=== PATIENT | female | born 1950 | race Caucasian/White ===

== ENCOUNTER 2017-09-28 15:20 | Inpatient (IN) | payer MEDICARE ==
[2017-09-28] MEDS ORDERED: ISOVUE-370 76%-LOCM 1 ML ONE (16:39)
[2017-09-28 17:36] LABS: #Basophils 0.1 thou/uL (0.0-0.2); #Lymphocytes 2.4 thou/uL (1.20-3.40); #Neutrophils 7.5 thou/uL (1.40-6.50); %Basophils 1.1 % (0.0-1.0); %Eosinophils 0.4 % (0.0-10.0); %Lymphocytes 21.6 % (21.0-51.0); %Monocytes 8.9 % (0.0-10.0); %Neutrophils 68.1 % (42.0-75.0); Hemoglobin 13.9 g/dL (12.0-16.0); Mean Corpuscular HGB CONC 33.2 g/dL (32.0-36.0); Mean Corpuscular Volume 90.5 fl (81.0-99.0); Mean Platelet Volume 7.3 fL (7.4-10.4); Platelet Count 274 thou/uL (130-400); RBC Distribution Width 12.4 % (11.5-14.5); Red Blood Cell (RBC) Count 4.64 mill/uL (4.20-5.40); White Blood Cell (WBC) Count 10.9 thou/uL (4.8-10.8)
[2017-09-28 17:40] LABS: Prothrombin Time 13.3 SEC (12.0-14.7)
[2017-09-28 17:59] LABS: ALT (SGPT) 18 U/L (8-55); AST (SGOT) 21 U/L (5-34); Albumin 4.8 g/dL (3.4-4.8); Alkaline Phosphatase 83 U/L (40-150); Anion Gap 17 mmol/L (10-20); BUN (Urea Nitrogen) 10 mg/dL (9.8-20.1); Bilirubin, Total 1.4 mg/dL (0.2-1.2); Calc. Creatinine Clearance 0 mL/min (70-130); Calcium 10.7 mg/dL (7.8-10.44); Carbon Dioxide 27 mmol/L (23-31); Chloride 96 mmol/L (98-107); Estimated GFR-MDRD 80; Globulin 3.4 g/dL (2.4-3.5); Glucose 102 mg/dL (80-115); Potassium 3.3 mmol/L (3.5-5.1); Protein, Total 8.2 g/dL (6.0-8.3); Sodium 137 mmol/L (136-145)
[2017-09-28 18:03] LABS: Troponin I Less than 0.010 ng/mL (< 0.028)
--- NOTE | 2017-09-28 18:39 | CT ---
CT ANGIO OF HEAD PERFORMED WITH AND WITHOUT INTRAVENOUS CONTRAST ENHANCEMENT WITH 3D RECONSTRUCTIONS AND CT ANGIO OF NECK PERFORMED WITH INTRAVENOUS CONTRAST ENHANCEMENT WITH 3D RECONSTRUCTIONS: 09/28/17 HISTORY: Patient with slurred speech. COMPARISON: 09/27/17 CT of the brain. Noncontrast CT shows a more definitive area of acute to subacute infarct in right middle cerebral ar roxi territory with decreased attenuation of the parasylvian location without evidence of hemorrhage. The parotid and submandibular gland regions are unremarkable. Parapharyngeal spaces are clear. No sig nificant adenopathy. Vocal cord region appears unremarkable. There is a right lobe thyroid nodule pre sent which would be better investigated with ultrasound on a nonemergent basis. CT ANGIO OF HEAD: There is patent cavernous portions of both internal carotid arteries. The A1, M1, and A2 and M2 segme nts of both right and left anterior middle cerebral arteries are patent. There is some mild decrease in the number of smaller peripheral parasylvian vessels on the right. I do not see any definite signs of any thrombus or evidence for any type of dissection. CT ANGIO OF NECK: The origin of the left vertebral is very tortuous with some very mild narrowing. Vertebral arteries a re codominant. There is some atherosclerotic change within both vertebral arteries, but they form a normal appearing basilar artery and posterior cerebral arteries appear unremarkable. There is a separate origin of the left common carotid artery from the aorta. There is no evidence of any significant common internal or external carotid stenosis. The right side shows similar findings without significant stenosis. IMPRESSION: 1. Evidence of an acute right middle cerebral artery infarct. There is slight decrease in number of the smaller parasylvian arteries on the right side associated with this, but I do not see any sig ns of any intraluminal thrombus or dissection. 2. No evidence of any internal carotid artery stenosis or evidence of any significant plaque for mation. POS: [facility]
[2017-09-28 19:57] LABS: Amphetamine Not Detected (NotDetected); Barbiturates Screen Not Detected (NotDetected); Benzodiazepine Screen Detected (NotDetected); Cocaine Metabolite Screen Not Detected (NotDetected); Medtox Control Line Valid? VALID (VALID); Medtox Reader # READER 1; Methadone Not Detected (NotDetected); Methamphetamine Not Detected (NotDetected); Opiate Screen Not Detected (NotDetected); Oxycodone Screen Not Detected (NotDetected); Phencyclidine (PCP) Not Detected (NotDetected); THC/Cannabinoid Screen Not Detected (NotDetected); Tricyclic Screen Not Detected (NotDetected)
[2017-09-28] MEDS ORDERED: Bisacodyl 5 MG TAB PO PRN (22:09)
[2017-09-28] MEDS ORDERED: Bisacodyl 10 MG SUPP PR PRN (22:09)
[2017-09-28] MEDS ORDERED: Acetaminophen 325 MG TAB PO PRN (22:09)
[2017-09-28] MEDS ORDERED: Loratadine 10 MG TAB PO PRN (22:09)
[2017-09-28] MEDS ORDERED: Mag-Al 1200 mg/1200 mg/30 ML UDCUP PO PRN (22:09)
[2017-09-28] MEDS ORDERED: Senokot 8.6 MG TAB PO PRN (22:09)
[2017-09-28] MEDS ORDERED: Ondansetron HCl/PF 4 MG/2 ML Vial IVP PRN (22:09)
[2017-09-28] MEDS ORDERED: Nitroglycerin 0.4 MG TAB (25 Tab Bottle) SL PRN (22:09)
[2017-09-28] MEDS ORDERED: Diabetic Tussin 200 MG/10 ML UDCUP PO PRN (22:09)
[2017-09-28] MEDS ORDERED: hydrALAZINE 20 MG/ML VIAL SLOW IVP PRN (22:09)
[2017-09-28] MEDS ORDERED: traMADol HCl 50 MG TAB PO PRN (22:09)
[2017-09-28] MEDS ORDERED: Benzonatate 100 MG CAP PO PRN (22:09)
[2017-09-28] MEDS ORDERED: Acetaminophen 650 MG Suppository PR PRN (22:09)
[2017-09-28] MEDS ORDERED: Lorazepam 2 MG/ML VIAL SLOW IVP PRN (22:09)
[2017-09-28] MEDS ORDERED: Calcium Carbonate 500 MG ChewTAB PO PRN (22:09)
[2017-09-28] MEDS ORDERED: Sodium Chloride 0.9% 1,000 ML IV SCH (22:15)
[2017-09-28] MEDS ORDERED: Potassium Chloride 40 MEQ in Sodium Chloride 0.9% 500 ML IVPB SCH (23:00)
[2017-09-29 01:06] VITALS: BMI 29.5
--- NOTE | 2017-09-29 03:51 | HP ---
PRIMARY CARE PHYSICIAN: Miko Winter PA-C in [place] CHIEF COMPLAINT: Slurred speech, facial droop, and facial flushing, and difficulty swallowing. HISTORY OF PRESENT ILLNESS: Ms. Ambrose is a very pleasant 67-year-old female with past medical hist ory of hypertension and gastroesophageal reflux disease who was brought into the emergency room by he r with the above-mentioned complaints. History is mainly obtained by the patient herself and supplemented by the electronic medical records from the emergency room. According to Ms. Ambrose her noticed that her speech was slurred and her face was flushed. I t was noticed by her that she was drooling and is having difficulty swallowing. She was init ially taken to [place] emergency room yesterday and was discharged home with written precautions. A ccording to the , her speech became more slurred and he returned her to the emergency room. Upon presentation to the emergency room, her blood pressure was 131/85 and she was hemodynamically st able. Her neurological examination was consistent with some left-sided facial weakness, left arm wea kness, left-sided facial droop and right gaze deviation. She was given [address] scan was obtained. CT of the brain showed some nonspecific equivocal findings in the right sylvian fissure. For this reason, she underwent a CT angiogram of the head and neck. This confirmed the findings of acute right middle cerebral artery infarction. She was not found to have any significant stenosis of the internal carotid arteries in the CT angio of the neck. Now, she is being admitted to the stroke floor for acute CVA. PAST MEDICAL HISTORY: 1. Hypertension. 2. Gastroesophageal reflux disease. 3. Chronic sinus infections. 4. Sciatica. PAST SURGICAL HISTORY: 1. Hysterectomy. 2. Bilateral bunion surgery. 3. Orthopedic surgery. SOCIAL HISTORY: She is and lives with her at home. No drug, tobacco, or alcohol abu se. ALLERGIES: Listed as LISINOPRIL, LATEX. FAMILY HISTORY: Significant for stroke in her mother, otherwise she denies any premature coronary ar roxi disease, cancer, diabetes, or hypertension. PSYCHIATRIC HISTORY: No anxiety, no depression. HOME MEDICATIONS: According to the ER room record, she takes the following: Tylenol with codeine #3 every 6 hours as needed, calcium plus vitamin D, Flexeril 10 mg b.i.d., fluticasone 50 mcg p.r.n., g abapentin 300 mg p.r.n., lorazepam 0.5 mg at bedtime, magnesium sulfate, Phenergan, rabeprazole 20 mg daily, spironolactone 50 mg daily. REVIEW OF SYSTEMS: At this time, the patient feels that her speech and her swelling has somewhat imp roved otherwise negative. The following complete review of systems was negative, unless otherwise me ntioned in the HPI or below: Constitutional: Weight loss or gain, ability to conduct usual activities. Skin: Rash, itching. Eyes: Double vision, pain. ENT/Mouth: Nose bleeding, neck stiffness, pain, tenderness. Cardiovascular: Palpitations, dyspnea on exertion, orthopnea. Respiratory: Shortness of breath, wheezing, cough, hemoptysis, fever or night sweats. Gastrointestinal: Poor appetite, abdominal pain, heartburn, nausea, vomiting, constipation, or diarr hea. Genitourinary: Urgency, frequency, dysuria, nocturia. Musculoskeletal: Pain, swelling. Neurologic/Psychiatric: Anxiety, depression. Allergy/Immunologic: Skin rash, bleeding tendency. PHYSICAL EXAMINATION: VITAL SIGNS: Blood pressure 131/84, pulse of 85, respirations 20, temperature 98.3, saturating 96% o n room air, on arrival. GENERAL: She appears in no acute distress. She is somewhat slow in her speech, but is awake, alert, oriented x3. HEENT: Mucous membrane is moist and pink. No oropharyngeal exudate or erythema. Head is normocepha lic, atraumatic. Pupils are equal, reactive to light and accommodation. Extraocular movements are i ntact. NECK: Supple without any lymphadenopathy, JVD, or bruit. CHEST: Clear to auscultation without any wheezing, rales, or rhonchi. Rate and rhythm is regular wi thout any murmur, rubs, or gallops. NEUROLOGIC: She has some slurred speech and mild left-sided facial droop and mild left arm and left leg weakness. Cranial nerve otherwise II-XII grossly intact. Sensation is intact. [id number]-uz-dssg t esting is within normal limits. Gait is not checked. PSYCHIATRIC: Normal affect. SKIN: Free of any rashes or bruises. Feels warm and dry to touch. LABORATORY DATA: A 12-lead EKG by my review shows normal sinus rhythm at 78 beats per minute with so me left ventricular hypertrophy. CT scan of the brain as per the radiologist as per the HPI. CBC shows WBCs of 10.9, otherwise unremarkable. Serum chemistries show potassium of 3.3, otherwise u nremarkable. Total bilirubin mildly elevated at 1.4. Cardiac enzymes normal. Urine drug screen pos itive for benzodiazepine. IMPRESSION AND PLAN: 1. Right middle cerebral artery infarction. The patient is being admitted to the stroke floor. We will consult stroke team and neurologist in the morning. Continue with full dose aspirin and atorvas tatin as well. Check a lipid panel and consult OT, PT and speech therapy as well. The patient will be kept n.p.o. until the speech therapist evaluation. For this reason, we will start her on gentle I V fluid hydration. Also, order transthoracic echocardiogram, and MRI of the brain along with MELISSA scr eening, home design assistant, ESR, and rheumatoid factor, encephalitis, RPR check. 2. Hypokalemia. We will replace and recheck in the morning. 3. Gastroesophageal reflux disease. She will be treated with Pepcid IV b.i.d. at this time also for the gastric prophylaxis. 4. History of hypertension. Patient is currently well controlled and most recent blood pressure is 136/64. We will hold antihypertensives to allow for permissive hypertension at this point. P.r.n. a ntihypertensives have been ordered. 5. Code status: FULL CODE. 6. Deep venous thrombosis and gastrointestinal prophylaxis. DISPOSITION: Ms. Ambrose is being admitted to the stroke floor for acute right MCA infarction. Krystal mated length of stay is at least 2 to 3 midnight. Further management will depend upon her clinical c ourse.
[2017-09-29 04:58] LABS: Bilirubin Negative (Negative); Blood, Urine Negative (Negative); Clarity CLEAR (Clear); Glucose, Urine (Dipstick) Negative (Negative); Leukocyte Negative (Negative); Nitrite Negative (Negative); Protein, Urine (Dipstick) Negative (Neg-Trace); Urobilinogen 0.2 mg/dL (0.2-1.0)
[2017-09-29 05:03] LABS: Specific Gravity, Urine 1.044 (1.002-1.036)
[2017-09-29 05:19] LABS: EliA RAS New Method **** NEW METHOD ****
[2017-09-29 05:24] LABS: #Basophils 0.1 thou/uL (0.0-0.2); #Eosinphils 0.1 thou/uL (0.0-0.7); #Lymphocytes 2.4 thou/uL (1.20-3.40); #Monocytes 0.8 thou/uL (0.11-0.59); #Neutrophils 4.8 thou/uL (1.40-6.50); %Basophils 1.5 % (0.0-1.0); %Eosinophils 0.9 % (0.0-10.0); %Lymphocytes 29.5 % (21.0-51.0); %Monocytes 9.7 % (0.0-10.0); %Neutrophils 58.5 % (42.0-75.0); Hemoglobin 12.8 g/dL (12.0-16.0); Mean Corpuscular HGB CONC 33.1 g/dL (32.0-36.0); Mean Corpuscular Hemoglobin 30.3 pg (27.0-31.0); Mean Corpuscular Volume 91.4 fl (81.0-99.0); Mean Platelet Volume 7.5 fL (7.4-10.4); Platelet Count 241 thou/uL (130-400); RBC Distribution Width 12.4 % (11.5-14.5); Red Blood Cell (RBC) Count 4.22 mill/uL (4.20-5.40); White Blood Cell (WBC) Count 8.2 thou/uL (4.8-10.8)
[2017-09-29 05:55] LABS: Anion Gap 12 mmol/L (10-20); BUN (Urea Nitrogen) 12 mg/dL (9.8-20.1); Calc. Creatinine Clearance 107 mL/min (70-130); Calcium 9.2 mg/dL (7.8-10.44); Carbon Dioxide 25 mmol/L (23-31); Cardiac Risk 3.3 (Less than 4.5); Chloride 105 mmol/L (98-107); Cholesterol 180 mg/dl (< 200 Desired); Estimated GFR-MDRD 85; Glucose 87 mg/dL (80-115); HDL Cholesterol 54 mg/dL (>60 Neg Risk); LDL Cholesterol, Calculated 115 mg/dL; Potassium 3.4 mmol/L (3.5-5.1); Sodium 139 mmol/L (136-145); Triglycerides 56 mg/dL (Less than 150)
[2017-09-29 06:00] LABS: Syphilis Antibody Nonreactive (Nonreactive); Syphilis Antibody Index 0.04 S/CO (<1.00 Non-Reactive)
[2017-09-29] MEDS ORDERED: Famotidine 20 MG TAB PO SCH (09:00)
[2017-09-29] MEDS ORDERED: Enoxaparin Sodium 30 MG/0.3 ML SYRINGE SC SCH (09:00)
[2017-09-29] MEDS ORDERED: Aspirin 300 MG Suppository PR SCH (09:00)
[2017-09-29] MEDS ORDERED: Famotidine/PF 20 mg/2ml Vial SLOW IVP SCH (09:00)
--- NOTE | 2017-09-29 10:26 | MRI ---
MRI BRAIN WITHOUT IV CONTRAST: Date: 09/29/17 HISTORY: Right middle cerebral artery infarction noted on prior CT angiogram head. FINDINGS: There is an area of restricted diffusion in the right anterior frontal lobe, as well as involving a p ortion of the most anterior superior aspect of the right temporal lobe consistent with an acute infar ction in the distribution of the right middle cerebral artery. This corresponds to findings on recent CT head on 09/28/17. No additional areas of acute infarction are visualized. There is mild edema adj acent to the area of infarction. There is no midline shift present. Ventricular system is normal in s ize, shape, and position. Grossly appropriate flow-voids are demonstrated at the base of the brain. A few scattered punctate foci of increased FLAIR and T2-weighted signal intensity in the periventricu lar and subcortical white matter which are nonspecific but likely reflective of mild chronic small ve ssel ischemic changes. The orbits, paranasal sinuses, and skull base have a normal MRI appearance. IMPRESSION: 1. Acute infarction in the right middle cerebral artery distribution. Findings were also seen on rec ent CT scan of the head on 09/28/17. 2. Mild chronic small vessel ischemic changes. POS: [facility]
--- NOTE | 2017-09-29 15:08 | CON ---
DATE OF CONSULTATION: 09/29/2017 CONSULTING PHYSICIAN: Hospitalist Service. IMPRESSION: 1. Right middle cerebral artery stroke. 2. Hypertension. 3. Chronic pain disorder. PLAN: 1. Aspirin 325 mg per day. 2. Statin to address her hyperlipidemia. 3. Echocardiogram. 4. Office followup. HISTORY OF PRESENT ILLNESS: Ms. Ambrose is a 67-year-old white female with reported history of mild hypertension and chronic pain issues including fibromyalgia and cervical disk disease. She developed acute dysarthria and was taken to the emergency room on . Apparently, her symptoms improved enough that the ER doctor did not feel there was any significant problems. She had a negative CT sc an at that point. She went home and appeared to be very drowsy throughout the afternoon. By the , her speech was worse and she was taken to the emergency room here. Her CT scan showed some bey btle acute ischemic changes in the right middle cerebral artery territory. CTA of the carotids were unremarkable. She has now had an MRI of the brain which showed some area of acute infarction involvi ng the right middle cerebral artery territory. Fortunately, her speech has improved and she never power d any left-sided weakness. She did have a gaze deviation transiently. There is no past history of s troke or TIA. PAST MEDICAL HISTORY: As listed above. ALLERGIES: None. SOCIAL HISTORY: No tobacco or alcohol use. She is and lives in [place]. FAMILY HISTORY: Noncontributory. MEDICATIONS: Reviewed. REVIEW OF SYSTEMS: The patient has no complaints of headache, nausea, dizziness, chest pain, shortne ss of breath. PHYSICAL EXAMINATION: GENERAL: She is a well-nourished elderly lady resting in bed in no distress. VITAL SIGNS: Stable. She is afebrile. HEENT: Pupils equal and reactive. Conjunctivae clear. Oropharynx clear. EXTREMITIES: No cyanosis or edema. NEUROLOGIC: She is a little drowsy from sedation, but awake and then follow commands appropriately. Her speech is fluent and clear. Cranial nerve exam showed a left facial droop. Sensation was symme tric. Motor exam showed symmetric internal auditor strength. There was no tremor or dysmetria present. Sensati on in extremities was intact. Plantar responses were downgoing on the right and upgoing on the left. Gait was not tested. SUMMARY: A 67-year-old woman with an acute infarct in the right middle cerebral artery territory. I t appeared that this is a primary thrombotic event. Agree with aspirin and statin. Would be happy to follow up with her as an outpatient.
[2017-09-29 15:46] VITALS: BP 123/61; TEMP 97.9
--- NOTE | 2017-09-29 16:12 | DIS ---
DATE OF ADMISSION: 09/28/2017 DATE OF DISCHARGE: 09/29/2017 ADMITTING DIAGNOSIS: Acute right middle cerebral artery infarct. DISCHARGE DIAGNOSIS: Acute right middle cerebral artery infarct. SECONDARY DIAGNOSES: 1. Hyperlipidemia. 2. Hypokalemia. 3. Gastroesophageal reflux disease. 4. History of hypertension. INVESTIGATIONS DONE DURING THIS ADMISSION: MRI of the brain showing an evidence of right MCA infarct with mild chronic small vessel ischemic changes. CT of the head with contrast was done and it showed an evidence of infarction. CONSULTANTS INVOLVED IN THIS CARE: Spencer Chong M.D. A 2D echo was done, which showed a good ejection fraction with no evidence of any thromboembolism phe nomenon contributing to the stroke. HISTORY OF PRESENT ILLNESS AND HOSPITAL COURSE: In brief, this is a 67-year-old white female, living with her . She presented to the hospital as the noticed that the patient was having some slurred speech and her face was flushed. This was yesterday and the patient was taken to [facility] on Emergency ER and was discharged home after a few hours. As her speech became more prominent and s lurred, the patient was returned back to the ER at [facility] and the patient had a CT of th e head, which showed some nonspecific equivocal findings in the right sylvian fissures. Also a CT an giogram of the head and neck was ordered, which confirmed the findings of the acute right middle cere bral artery infarction. MRI was also ordered, which confirmed the CT findings with right ischemic MC A. The patient was monitored and was seen by Neurology. The patient's symptoms have returned back to no rmal and her speech was much better and had a swallow study and speech therapy recommended diet. The patient was following with no problems. The patient also had PT and OT evaluation for rehab [facility], but the patient was highly functional and suggested the patient could go home with some exercises prescribed by the PT and OT. The patient had a lipid profile done showing an evidence of a mildly e levated LDL to 115 and I explained to the family the goal LDL should be less than 100. The patient is discharged home in stable condition after the 2D echo was done, which showed a good ej ection fraction with no evidence of any thromboembolism. The patient was discharged home in stable condition. PHYSICAL EXAMINATION: VITAL SIGNS: Blood pressures are 140/69, heart rate is 92, respiratory rate is 25, saturation 98%. GENERAL: The patient is moderately built and moderately nourished. She does not appear to be in acu te distress. CARDIOVASCULAR: S1, S2 normal. No murmurs, rubs or gallops. LUNGS: Bilateral air entry was equal. No wheezing, no crackles. ABDOMEN: Soft, nontender. No guarding. No rebound tenderness. NEUROLOGIC: Cranial nerve examinations were done. The patient showed persistent deficits in her spe ech, but it was much better and was improving progressively. DISCHARGE MEDICATIONS: New medications are, 1. Atorvastatin 20 mg p.o. daily. 2. Aspirin 81 mg daily. Old medications will be continued. 1. Acetaminophen with codeine, Tylenol #3. 2. Cyclobenzaprine 10 mg p.o. b.i.d. 3. Fluticasone 1 spray nasal daily. 4. Gabapentin 100 mg p.o. daily. 5. Lorazepam 0.5 mg p.o. at bedtime. 6. Magnesium sulfate 100 mg p.o. daily. 7. Multivitamin. 8. Rabeprazole 20 mg p.o. b.i.d. 9. Spironolactone 50 mg p.o. daily. DISCHARGE INSTRUCTIONS: Continue activity as tolerated. Advised to follow up with primary care phys ician in 1-2 weeks. Advised to follow up with Neurology in 2 weeks. Advised to return back to the E R for any worsening symptoms or worsening speech. Advised to continue diet as suggested by speech therapy. I spent 35 minutes with this patient on the day of discharge.
[2017-09-29] MEDS ORDERED: Atorvastatin Calcium 20 MG TAB PO SCH (21:00)
[2017-09-30] MEDS ORDERED: Prevnar 13-Val Conj/PF 0.5 ML SYRINGE IM ONE (09:00)
[2017-09-30] MEDS ORDERED: FLU VACC TS2017-18 (>65YR) 0.5 ML SYRINGE IM ONE (09:00)
[2017-10-01 11:49] LABS: ANA Symphony (Quantitative) 0.1 Ratio (<0.7 Negative); Rheumatoid Factor IgM Antibody Less than 0.5 IU/mL (<3.5 Negative); dsDNA IgG Antibody 1.1 IU/mL (<10 Negative)
[2017-10-01 11:51] LABS: ANA Symphony (Qualitative) Negative (Negative)
== END 2017-09-29 16:32 | disposition home or self-care (01) | DRG 66 ==
LOC: ERS 15:20 → 2SE 20:10
PROVIDERS: ADMIT Internal Medicine; ATTEND Internal Medicine
DX: I63.511 Cerebral infarction due to unspecified occlusion or stenosis of right middle cerebral artery (principal); E78.5 Hyperlipidemia, unspecified; G83.24 Monoplegia of upper limb affecting left nondominant side; R47.1 Dysarthria and anarthria; R29.810 Facial weakness; R29.705 NIHSS score 5; H53.8 Other visual disturbances; E87.6 Hypokalemia; K21.9 Gastro-esophageal reflux disease without esophagitis; I10 Essential (primary) hypertension; M79.7 Fibromyalgia; M50.90 Cervical disc disorder, unspecified, unspecified cervical region
CPT/HCPCS: 36415; 36416; 70496; 70498; 70551; 80048; 80053; 80061; 80306; 81003; 82553; 83090; 83520; 84484; 85025; 85610; 85652; 85730; 86038; 86225; 86780; 93005; 93306; 96360; G8978-GP-CL; G8979-GP-CJ; G8996-GN-CI; G8997-GN-CI; J1650; J2060; J3480; J7050; S0028

== ENCOUNTER 2018-01-03 08:41 | Observation (INO) | payer MEDICARE ==
[2018-01-03 09:28] LABS: #Basophils 0.1 thou/uL (0.0-0.2); #Eosinphils 0.1 thou/uL (0.0-0.7); #Lymphocytes 1.7 thou/uL (1.20-3.40); #Monocytes 0.5 thou/uL (0.11-0.59); #Neutrophils 3.5 thou/uL (1.40-6.50); %Basophils 1.5 % (0.0-1.0); %Eosinophils 1.4 % (0.0-10.0); %Lymphocytes 28.8 % (21.0-51.0); %Monocytes 8.4 % (0.0-10.0); Hemoglobin 13.1 g/dL (12.0-16.0); Mean Corpuscular HGB CONC 32.4 g/dL (32.0-36.0); Mean Corpuscular Hemoglobin 29.8 pg (27.0-31.0); Mean Platelet Volume 7.1 fL (7.4-10.4); Platelet Count 229 thou/uL (130-400); RBC Distribution Width 12.2 % (11.5-14.5); Red Blood Cell (RBC) Count 4.41 mill/uL (4.20-5.40); White Blood Cell (WBC) Count 5.9 thou/uL (4.8-10.8)
[2018-01-03 09:36] LABS: PTT 27.3 SEC (22.9-36.1); Prothrombin Time 13.1 SEC (12.0-14.7)
--- NOTE | 2018-01-03 09:38 | CT ---
CT BRAIN WITHOUT CONTRAST: Comparison: 09-27-17 History: Stroke alert. Altered mental status. Previous stroke 3 months ago. Technique: Multiple contiguous axial images were obtained in a CT of the brain without contrast. FINDINGS: There is encephalomalacia in the right frontal lobe from prior right sided infarction. No new large c onfluent infarctions seen. There is no evidence of hydrocephalus, intracranial hemorrhage, or extraax ial fluid collections. The calvarium and overlying soft tissues are unremarkable. The visualized paranasal sinuses and masto id air cells are well aerated. IMPRESSION: 1. No evidence of acute intracranial abnormality. 2. Remote right MCA distribution infarction. 3. Dr. Dennis notified of the findings at 8:37 a.m. on 01-03-18. POS: [facility]
[2018-01-03 09:41] LABS: ALT (SGPT) 25 U/L (8-55); AST (SGOT) 26 U/L (5-34); Albumin 4.1 g/dL (3.4-4.8); Alkaline Phosphatase 76 U/L (40-150); Anion Gap 14 mmol/L (10-20); BUN (Urea Nitrogen) 9 mg/dL (9.8-20.1); Bilirubin, Total 1.2 mg/dL (0.2-1.2); Calc. Creatinine Clearance 0 mL/min (70-130); Calcium 9.5 mg/dL (7.8-10.44); Carbon Dioxide 24 mmol/L (23-31); Chloride 102 mmol/L (98-107); Estimated GFR-MDRD Greater than 90; Globulin 2.9 g/dL (2.4-3.5); Glucose 95 mg/dL (80-115); Potassium 3.8 mmol/L (3.5-5.1); Sodium 136 mmol/L (136-145)
[2018-01-03 09:44] LABS: CKMB 1.1 ng/mL (0-6.6); Troponin I Less than 0.010 ng/mL (< 0.028)
--- NOTE | 2018-01-03 10:06 | CT ---
CTA OF THE NECK WITH CONTRAST CTA OF THE HEAD WITH CONTRAST: Comparison: 09-28-17 History: Altered mental status. Stroke. Technique: 1. Multiple contiguous axial images were obtained in a CTA of the neck with contrast. 3D sagittal and coronal MIP reformats were performed. 2. Multiple contiguous axial images were obtained in a CTA of the head with contrast. 3D sagittal and coronal MIP reformats were performed. FINDINGS: CTA NECK: Degenerative changes are seen in the spine. The lung apices are unremarkable. No cervical adenopathy is seen. No mucosal abnormality is seen. The aorta is normal in caliber without evidence of aneurysmal dilatation. The subclavian arteries are normal in caliber without focal stenosis. Both common carotid arteries are normal in caliber. There is a tortuous right common carotid artery proximally. Both common carotid artery branches have normal appearing internal and external carotid arteries. No significant stenosis is seen of either internal carotid artery in the neck per NASCET criteria. Both vertebral arteries form a normal appearing basilar artery. No significant atherosclerotic diseas e is seen in the vertebral arteries. CTA HEAD: Mild to moderate nonfocal atherosclerotic disease is in the cavernous portion of both internal caroti d arteries. The internal carotid arteries branch in a normal caliber anterior and middle cerebral art eries. There is no evidence of aneurysmal dilatation, focal stenosis or occlusion in the anterior cir culation. Both vertebral arteries form a normal appearing basilar artery. The posterior cerebral arteries and c erebellar arteries are patent. There is a prominent right posterior communicating artery. There is no evidence of aneurysmal dilatation, focal stenosis, or occlusion in the posterior circulation. IMPRESSION: 1. No significant vascular abnormality in the neck. 2. No significant intracranial vascular abnormality. POS: [facility]
[2018-01-03 10:30] LABS: Bilirubin Negative (Negative); Blood, Urine Negative (Negative); Clarity CLEAR (Clear); Glucose, Urine (Dipstick) Negative (Negative); Leukocyte Negative (Negative); Nitrite Negative (Negative); Protein, Urine (Dipstick) Negative (Neg-Trace); Specific Gravity, Urine 1.036 (1.002-1.036); Urobilinogen 0.2 mg/dL (0.2-1.0); pH, Urine 8.5 (5.0-9.0)
[2018-01-03] MEDS ORDERED: Aspirin 325 MG TAB ONE (11:10)
[2018-01-03] MEDS ORDERED: Clopidogrel Bisulfate 75 MG TAB ONE (11:10)
[2018-01-03] MEDS ORDERED: Iopamidol 370 76% 100 ML VIAL ONE (12:10)
[2018-01-03] MEDS ORDERED: Ondansetron HCl/PF 4 MG/2 ML Vial IVP PRN (13:04)
[2018-01-03] MEDS ORDERED: Zolpidem Tartrate 5 MG TAB PO PRN (13:04)
--- NOTE | 2018-01-03 13:13 | PDOC.EVN ---
Event Note - Event Note Event Note: [facility]ATED #[id number]
--- NOTE | 2018-01-03 14:42 | ULT ---
CAROTID ULTRASOUND: COMPARISON: None. HISTORY: History of right MCA distribution infarction. TIA and altered mental status. TECHNIQUE: Multiplanar, deutsch scale, and color Doppler images were obtained in a carotid ultrasound. Spectral an alysis of the Doppler waveforms was performed. FINDINGS: No significant plaque is visualized in either common or internal carotid artery. The Doppler wavefor ms are normal bilaterally. Peak systolic velocity in the right ICA is 71 cm/s. The peak systolic velocity in the right CCA is 1 06 cm/s. The right ICA/CCA ratio is 0.7. Peak systolic velocity in the left ICA is 03 cm/s. The peak systolic velocity in the left CCA is 109 cm/s. The left ICA/CCA ratio is 1.0. Both vertebral arteries demonstrate antegrade flow without focal stenosis. IMPRESSION: No evidence of hemodynamically significant stenosis. POS: [facility]
--- NOTE | 2018-01-03 14:46 | HP ---
DATE OF ADMISSION: 01/03/2018 CHIEF COMPLAINT: Altered mental status and confusion. HISTORY OF PRESENT ILLNESS: This is a 67-year-old female who was admitted to the hospital, coming in through the ER. Patient apparently this morning was found to be confused by her family. The patien nnamdi also stated that she noted confusion spells and episodes that she was having. States that this mor sanjay she was making her coffee and then she started to feel confused and was unsure why she cannot ma ke her coffee. The patient's family brought her to the hospital at that point in time of examination by Internal Medicine team. The patient is alert, oriented x3, and back to her baseline. The patien nnamdi does admit to the exact similar symptoms approximately in September of this year, 4 months ago when she was diagnosed with a right-sided MCA infarction; however, no neurological deficits were noted. T he patient states her blood pressure is normal at home. States that she has no other associated symp toms or complaints. No alleviating or aggravating factors. Family at bedside. ALLERGIES: LOSARTAN and LISINOPRIL. HOME MEDICATIONS: See MAR. SOCIAL HISTORY: Denies any smoking or drinking. PAST MEDICAL HISTORY: Hypertension, GERD, history of CVA as well as arthritis. FAMILY HISTORY: Positive for stroke on her mother's side and hypertension on her father's side. REVIEW OF SYSTEMS: All systems reviewed. Pertinent positives in the HPI. PHYSICAL EXAMINATION: VITAL SIGNS: Blood pressure is 149/81, respiratory rate of 18, temperature of 98, O2 saturation 90% on 2 liters nasal cannula and heart rate of 81. GENERAL: The patient is sitting in bed in no acute discomfort, in no acute distress. HEENT: Normocephalic, atraumatic. Extraocular muscles intact. Oral cavity moist and pink. Nontend er and mobile thyroid appreciated. LUNGS: Clear to auscultation bilaterally. No rales, rhonchi or wheezing noted. CARDIOVASCULAR: Regular rate and rhythm. S1 and S2. No murmurs, rubs or gallops appreciated. ABDOMEN: Positive bowel sounds, soft, nontender, no rebound, guarding or rigidity noted. EXTREMITIES: 2+ peripheral pulses. Trace edema in bilateral lower extremities, otherwise upper extr emity has no edema. No cyanosis or clubbing noted. NEUROLOGIC: Alert and oriented x3. Nephrologist strength 5/5 bilaterally. Hip flexion 5/5 bilaterally, elb ow flexion 5/5 bilaterally. No loss of sensory function. LABORATORY DATA AND IMAGING DATA: Lab abbasi, CBC and BMP intact. Urinalysis normal. The patient had a CT scan of the brain done which showed no acute intracranial bleed. Also had a CT angiogram done which showed no significant acute abnormalities vascularly, prior damage noted. ASSESSMENT AND PLAN: 1. Transient ischemic attack, rule out cerebrovascular accident. 2. Hypertension. 3. Hyperlipidemia. 4. Gastroesophageal reflux disease. 5. Arthritis. 6. Admit to observation telemetry floor to Internal Medicine team, we will consult Neurology. We wi ll obtain carotid ultrasounds and MRI. We will also follow up with labs in the morning. PT/OT evalu ations as well. The patient will need an outpatient Neurology followup as she is in between neurolog ist and is looking for new one. We will consult Neurology nutritionists. At this point in time, discharge planning in a.m. if all lab results are negative and okay with neurological team and no new symptoms noted per patient. Patient wishes to remain a FULL CODE. The case and plan discussed with the chapo ent and family at length. They understand and agree with this plan.
[2018-01-03] MEDS ORDERED: Lorazepam 2 MG/ML VIAL ONE (15:33)
--- NOTE | 2018-01-03 16:14 | MRI ---
BRAIN MRI WITHOUT CONTRAST: HISTORY: Confusion. COMPARISON: 09/29/17. TECHNIQUE: Brain MRI is performed with and without intravenous Gadolinium administration. Multisequential, mult iplanar imaging is performed. FINDINGS: No hemorrhage on the axial gradient echo sequence. No parenchymal mass, mass effect, or midline shift. Basilar cisterns are patent. There is intrinsic T1 hyperintensity with intrinsic T2 and STIR hyperintensity involving the right fr ontal and temporal lobes. There is no evidence of associated restricted diffusion. Findings are com patible with laminar necrosis, malacic and gliotic change due to remote insult from infarct present o n MRI from September 2017. Remainder of the cerebral is unremarkable. Cortical deutsch-white matter dif ferentiation is preserved. Ventricles and sulci are patent and symmetric. Central arterial flow voids are maintained. Adequate aeration of the sinuses and mastoid air cells. Calvarium has a normal T1 marrow signal intensity. Midline brain parenchymal structures are unremark able. IMPRESSION: Remote infarct involving the right frontal lobe. There is associated malacic gliotic change and lami werner necrosis. POS: [facility]
[2018-01-03 18:26] VITALS: BMI 30.5
[2018-01-03] MEDS: Famotidine 20 MG TAB PO SCH (20:03)
[2018-01-04 06:30] LABS: #Basophils 0.1 thou/uL (0.0-0.2); #Eosinphils 0.1 thou/uL (0.0-0.7); #Monocytes 0.6 thou/uL (0.11-0.59); #Neutrophils 4.2 thou/uL (1.40-6.50); %Eosinophils 1.4 % (0.0-10.0); %Lymphocytes 28.8 % (21.0-51.0); %Monocytes 9.1 % (0.0-10.0); %Neutrophils 59.7 % (42.0-75.0); Hemoglobin 13.9 g/dL (12.0-16.0); Mean Corpuscular HGB CONC 32.9 g/dL (32.0-36.0); Mean Platelet Volume 7.2 fL (7.4-10.4); Platelet Count 253 thou/uL (130-400); RBC Distribution Width 12.2 % (11.5-14.5); Red Blood Cell (RBC) Count 4.64 mill/uL (4.20-5.40)
[2018-01-04 06:39] LABS: Anion Gap 11 mmol/L (10-20); BUN (Urea Nitrogen) 12 mg/dL (9.8-20.1); Calc. Creatinine Clearance 112 mL/min (70-130); Calcium 9.9 mg/dL (7.8-10.44); Carbon Dioxide 26 mmol/L (23-31); Chloride 103 mmol/L (98-107); Estimated GFR-MDRD 87; Glucose 88 mg/dL (80-115); Potassium 3.9 mmol/L (3.5-5.1); Sodium 136 mmol/L (136-145)
[2018-01-04] MEDS: Famotidine 20 MG TAB PO SCH (07:43)
[2018-01-04] MEDS ORDERED: Enoxaparin Sodium 40 MG/0.4 ML SYRINGE SC SCH (09:00)
[2018-01-04] MEDS ORDERED: Prevnar 13-Val Conj/PF 0.5 ML SYRINGE IM ONE (09:00)
--- NOTE | 2018-01-04 10:42 | PDOC.EVN ---
Event Note - Event Note Event Note: DC SUMMARY #[id number]
[2018-01-04 11:26] VITALS: BP 147/83; TEMP 98
--- NOTE | 2018-01-04 19:20 | DIS ---
DATE OF ADMISSION: 01/03/2018 DATE OF DISCHARGE: 01/04/2018 ADMITTING DIAGNOSES: Transient ischemic attack, confusion, history of essential hypertension, histor y of gastroesophageal reflux disease as well as history of arthritis. DISCHARGE DIAGNOSES: Transient ischemic attack, cerebrovascular accident ruled out, hypertension, hy perlipidemia, gastroesophageal reflux disease, arthritis. HOSPITAL COURSE: This is a 67-year-old female who was admitted to the hospital with past medical his tory of right-sided MCA infarction with no neurological deficits. The patient was admitted because t he patient had confusion episodes at home and family was brought her into the ER. The patient stated last time she was told she had a stroke, this is exactly how she presented. The patient was admitte d to Internal Medicine team on telemetry floor, followed also by Neurology. Patient had brain CTA of [place], brain MRI as well as carotid ultrasounds done. Brain MRI showed a prior stroke th at had occurred in 09/2017; however, no new strokes were noted. Carotid ultrasounds were also clear on bilateral sides and no severe significant stenosis noted at all. Brain CT was negative for acute bleed. CTA angiography of the brain showed no significant vascular abnormalities in the neck and no significant vascular abnormalities otherwise intracranially. The patient's laboratory workup of the 2 days of duration of stay was normal as well, inclusive of urinalysis, basic metabolic panel, coagul ation panel as well as CBC. The patient's vital signs were stable throughout admission. At point in time of discharge, the patient was stable, alert and oriented x3, able to walk around the room as we ll. No family at bedside. The patient stated that she was ready to go home. Patient was cleared fr Neurology and Internal Medicine prior to discharge. DISPOSITION: Home. FOLLOWUP: Follow up with PCP within 1 to 2 weeks, Neurology within 2 to 3 weeks. MEDICATIONS: Resume home medications. ACTIVITY: As tolerated with assistance as appropriate. DIET: Low fat, low calorie, high-fiber diet. CONDITION: Stable. PROGNOSIS: Good. Case and plan discussed with the patient at length. She understands and agrees with this plan.
--- NOTE | 2018-01-04 19:38 | CON ---
CHIEF COMPLAINT: Mild confusion. HISTORY OF PRESENT ILLNESS: Patient is a very pleasant right-handed lady. She is 67 years old. She comes yesterday on 01/03/2018 to the clinic and she was admitted with confusion where she was. She is using her mold maker helper and she could not figure out how to use it and she also was pouri ng orange juice. She did not know how to work that. She is not sure how long this lasted, but she t hinks it lasted about 15-20 minutes and she called 911 because she was afraid she was going to have a nother stroke and she comes back to the ER with these symptoms and symptoms have resolved since yeste rday and she has not had any further episodes. She did not check her blood pressure during this even t. She had right MCA CVA in 09/2017 and had made a complete recovery even during that time she had e xperienced some confusion, but she had facial droop and left-sided weakness. She wanted to prevent a ny worsening and therefore comes to the hospital. No numbness or weakness with this episode. No vis ion changes. No seizure-like activity noted by family members. PAST MEDICAL HISTORY: Positive for hypertension, gastroesophageal reflux disease, history of CVA as stated in 09/2017 and arthritis. ALLERGIES: She is allergic to LOSARTAN, CEPHALOSPORINS and LISINOPRIL. HOME MEDICATIONS: She takes aspirin. She also takes atorvastatin. She takes antihypertensives as w ell at home. Plavix in addition to aspirin and atorvastatin. FAMILY HISTORY: Positive for mother having had prior strokes and hypertension in her father. SOCIAL HISTORY: She lives with her , does not smoke or drink and her lab reports. REVIEW OF SYSTEMS: Pulmonary: Normal. Cardiac: Normal. Gastrointestinal: Normal. Genitourinary: Normal. Dermatologic: Normal. Gastrointestinal: Normal. Hematologic: Normal. N eurologic: Positive for confusion. Psychiatric: Normal. LABORATORY DATA: White count 7.0, hemoglobin 13.9, hematocrit 42.3, platelets 253. Chemistry: S[place] um 136, potassium 3.9, chloride 103, carbon dioxide 26, creatinine 0.68, BUN 12. Her MRI of [facility] did not show any acute stroke at this time. She had a remote infarct involving the right frontal l obe and there is also associated gliosis and laminar necrosis in the area of prior stroke and she als o had a CT angiography of the head and neck which did not reveal any acute vascular abnormalities or intracranial vascular abnormality and her carotid Doppler study was negative for any hemodynamically significant stenosis. PHYSICAL EXAMINATION: VITAL SIGNS: Blood pressure 147/83, pulse is 85, temperature 98, respiratory rate is 20. GENERAL APPEARANCE: Well-built, well-nourished lady who is very pleasant. CHEST: Clear vesicular breathing. CARDIOVASCULAR: S1, S2 heard, no murmurs. ABDOMEN: Soft, nontender, no organomegaly noted. NEUROLOGICAL: Higher intellectual functions, normal orientation to time, place and person and approp riate conversation. Normal affect. Cranial nerves II-XII normal. Normal fundus exam, normal pupils , normal extraocular movements bilaterally. No facial asymmetry was noted. Normal sensation of face bilaterally. Tongue midline, no atrophy noted. Normal elevation of palate. Normal hearing to fing er rub bilaterally. Normal strength of sternomastoid and trapezius. Motor: Bulk normal, tone cabrera l, strength is 5/5 throughout in upper limbs and lower limbs. Muscle groups tested are deltoid, som ps, triceps, wrist extension/flexion, finger extension and flexion bilaterally. Iliopsoas, hamstring s, quadriceps, ankle dorsiflexion and plantarflexion were also at 5/5 bilaterally. Deep tendon refle xes were absent throughout and absent knee jerks, ankle jerks, biceps, triceps, and brachioradialis. Cerebellar: Normal qhhwro-vp-opbs and bytr-kn-cqgx. Sensory: Normal sensation to pinprick, propri oception, vibration, and temperature bilaterally. Gait examination was normal. IMPRESSION: Patient is a very pleasant 67-year-old lady with prior history of stroke in 09/2017. [place] cole is currently on 2 antiplatelet agents, Plavix as well as aspirin and is also on statin. Currently investigations and workup did not show any evidence of acute stroke. At this time, there is no vascu lar disease either. Her neurological examination is normal to the event. She describes seems to be very transient confusion, particularly with the process of how she was pouring coffee or trying to ge t her orange juice and this was brief and lasted about 15-20 minutes and completely resolved without any neurological sequelae, such events can be results of possible orthostatic hypotension or hyperten sive episodes or other factors such as complex partial seizures. At this time, patient seems to be q uite stable and is in need of a neurologist as an outpatient. RECOMMENDATIONS: 1. For now, continue Plavix and aspirin. 2. Please refer her to Dr. Villeda for further workup. 3. Patient is stable and okay to discharge from neurology standpoint for now and please advise her t hat if she has any recurrence of these symptoms, she needs to immediately come back to the hospital.
== END 2018-01-04 12:48 | disposition home or self-care (01) ==
LOC: ERS 08:41 → 2SE 13:04
PROVIDERS: ADMIT Internal Medicine; ATTEND Internal Medicine
DX: G45.9 Transient cerebral ischemic attack, unspecified (principal); I10 Essential (primary) hypertension; K21.9 Gastro-esophageal reflux disease without esophagitis; M19.90 Unspecified osteoarthritis, unspecified site; E78.5 Hyperlipidemia, unspecified; Z86.73 Personal history of transient ischemic attack (TIA), and cerebral infarction without residual deficits; Z79.02 Long term (current) use of antithrombotics/antiplatelets; Z79.51 Long term (current) use of inhaled steroids; Z79.82 Long term (current) use of aspirin; Z79.899 Other long term (current) drug therapy; Z88.1 Allergy status to other antibiotic agents; Z88.8 Allergy status to other drugs, medicaments and biological substances
CPT/HCPCS: 70450; 70496; 70498; 70551; 80048; 80053; 81003; 82553; 82962; 84484; 85025 ×2; 85610; 85730; 87086; 93005; 93880; 96372; 97139 ×3; 99285; G0378 ×2; G8987; G8988; G8989; 36415; 36416; J1650; J2060

== ENCOUNTER 2018-01-23 04:34 | Day surgery (SDC) | payer MEDICARE ==
[2018-01-23] MEDS ORDERED: Fentanyl 100 MCG/2 ML VIAL ONE ×5 (04:46→12:58)
[2018-01-23] MEDS ORDERED: Ondansetron ODT 4 MG TAB ONE (04:46)
[2018-01-23] MEDS ORDERED: Levofloxacin 500 mg/D5W 100 ml Premix Bag ONE (07:35)
[2018-01-23 07:42] LABS: Prothrombin Time 13.7 SEC (12.0-14.7)
[2018-01-23] MEDS ORDERED: MEROPENEM 1 GM/50 ML 1 GM in Premix Bag 1 BAG IVPB SCH (07:45)
[2018-01-23] MEDS ORDERED: Ketorolac Tromethamine 30 MG/ML VIAL ONE (08:42)
[2018-01-23] MEDS ORDERED: Scopolamine 1.5 mg/72 hour Patch ONE (08:42)
[2018-01-23] MEDS ORDERED: Bupivacaine HCl 0.5%/Epinephrine 1:200,000/PF 30 ml Vial ONE (10:20)
[2018-01-23] MEDS ORDERED: Iothalamate Meglumine 60% 50 ML VIAL FS ONE (10:20)
--- NOTE | 2018-01-23 11:01 | ULT ---
PRELIMINARY REPORT/[facility]/EMERGENCY AFTER HOURS PROCEDURE: EXAM: US Abdomen Limited, Right Upper Quadrant CLINICAL HISTORY: 67 years old, female; Pain and signs and symptoms; Nausea and vomiting; Abdominal pain; Localized; Ri ght upper quadrant (ruq) TECHNIQUE: Real-time ultrasound of the right upper quadrant with image documentation. COMPARISON: No relevant prior studies available. FINDINGS: Liver: There is hepatopedal flow in the portal vein. The liver measures 14.5 cm. No intrahepatic bile duct dilation. Gallbladder: There are shadowing gallstones in the gallbladder. The gallbladder wall is thickened catarino suring 3.5 mm. There is a trace amount of pericholecystic fluid and a laminated appearance of the gal lbladder wall suspicious for acute cholecystitis. Common bile duct: The common bile duct is mildly prominent measuring 7 mm diameter. No stones. Pancreas: The imaged pancreas appears hyperechoic. Right kidney: The right kidney measures 10.7 x 5 x 4.1 cm. No stones. No hydronephrosis. IMPRESSION: 1. There are several shadowing gallstones in the gallbladder. The gallbladder wall is thickened measu ring 3.5 mm. There is a trace amount of pericholecystic fluid and a laminated appearance of the gallb ladder wall suspicious for acute cholecystitis. 2. The common bile duct is mildly prominent measuring 7 mm diameter. Distal common bile duct obstruct ion cannot be excluded. 3. Hyperechoic pancreas which could represent early pancreatitis. This interpretation was based upon the receipt of 61 image(s). Thank you for allowing us to participate in the care of your patient. Dictated and Authenticated by: Lambert Melo DO 01/23/2018 6:41 AM Central Time ([place] & [place]) FINAL REPORT RIGHT UPPER QUADRANT ULTRASOUND Date: 01/23/18 FINDINGS/IMPRESSION: I agree with the preliminary report given by Mirna. POS: [facility]
[2018-01-23] MEDS ORDERED: Promethazine HCl 25 MG/ML VIAL IM PRN (11:09)
[2018-01-23] MEDS ORDERED: Promethazine HCl 25 MG/ML VIAL SLOW IVP PRN (11:09)
[2018-01-23] MEDS ORDERED: Ondansetron HCl/PF 4 MG/2 ML Vial IVP PRN (11:09)
--- NOTE | 2018-01-23 11:19 | HP ---
HISTORY OF PRESENT ILLNESS: Ms. Rhys Ambrose is a 67-year-old female who presented to the emergen cy room with right upper quadrant pain, epigastric pain with back radiation. Ultrasound reveals gall stones, bile duct 7 mm. Bilirubin is 1.5. AST, ALT are normal. Alkaline phosphatase is normal. Elgin monson's white count is 10, hemoglobin 12.5. Dr. Claire has asked me to assume her care as he has ob ligations today. I have seen the patient in the emergency room. She gives a history of past episode of epigastric right upper quadrant pain. She has attributed to reflux. She also has intermittent h eartburn consistent with reflux, but separate symptoms from her episodes of epigastric right upper qu adrant pain. ALLERGIES: CEPHALOSPORINS, LISINOPRIL, LOSARTAN. TOBACCO: None. ALCOHOL: Rarely. MEDICATIONS: Aciphex 40 mg a day, multivitamins daily, magnesium sulfate 100 mg a day, lorazepam 0.5 mg at bedtime p.r.n., Neurontin 1-3 capsules at bedtime p.r.n., Flonase nasal spray as needed, Flexe ril 10 mg as needed, Plavix 75 mg a day, calcium carbonate/vitamin D3 daily, atorvastatin (Lipitor) 2 0 mg at bedtime, aspirin 81 mg a day, amoxicillin, Tylenol #3. PAST SURGICAL HISTORY: Hysterectomy, bunion surgery, orthopedic surgery. PAST MEDICAL HISTORY: She had a stroke in September, right frontal lobe leaving her with some speech inservice and left hemiparesis. She has completely recovered, although may be some mentation, mild p ersistence. She is independently ambulatory. She had neurological event a few weeks ago and hospita lized and CAT scan, MRI scan were unchanged. It was thought to be orthostatic in nature and not a re peat neurological event. History of GERD, hypertension. SOCIAL HISTORY: She is and lives with her at home. 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 PHYSICAL EXAMINATION: VITAL SIGNS: Weight 86 kilograms, respiratory rate 18, 98.5 degrees, 88. HEENT: Unremarkable. LUNGS: Clear to auscultation. CARDIAC: Regular rate and rhythm without murmur or gallop. ABDOMEN: Soft, tenderness in right upper quadrant without guarding, positive Miles's sign. EXTREMITIES: Unremarkable. LABORATORY DATA: As noted above. IMAGING: Echocardiogram, normal. She has had a past colonoscopy that was normal. She is due for ma mmogram soon. REVIEW OF SYSTEMS: Ten point noncontributory. ASSESSMENT AND PLAN: 1. Cholecystitis, cholelithiasis. I would recommend laparoscopic video cholecystectomy. Risk of in fection, bleeding, visceral biliary injury explained. She consents. We will plan this today as an o utpatient. 2. History of stroke. 3. History of hypertension.
--- NOTE | 2018-01-23 12:28 | OP ---
DATE OF PROCEDURE: 01/23/2018 PREOPERATIVE DIAGNOSES: Acute cholecystitis, chronic cholecystitis, cholelithiasis, elevated bilirub in at 1.5, bile duct 7 mm. PROCEDURES PERFORMED: Laparoscopic video cholecystectomy, cholangiogram using fluoroscopy, normal ch olangiogram. No filling defects, normal tapering of the bile duct with normal emptying into the duod enum. SURGEON: Dr. Foster Montgomery ANESTHESIA: General. Local 0.5% Marcaine with epinephrine. Fluoroscopy less than 5 minutes used. PROCEDURE IN DETAIL: Patient was taken to the operating room under general anesthesia. Abdomen was prepared with ChloraPrep, draped in routine fashion. Local anesthetic 0.5% Marcaine with epinephrine infiltrated into skin and subcutaneous tissue about each port site. Infraumbilical incision made an d pneumoperitoneum to 15 mmHg obtained with the Veress needle, replacing it with a 5-port and video l aparoscope inserted. Right subxiphoid incision made and 11-port placed. Right subcostal incision ma de mid clavicular anterior axillary and 5 ports placed. Gallbladder was acutely inflamed. Liver elkin eared to be normal. Gallbladder wall was markedly edematous and inflamed. Fundus grasped and reflec [place] cephalad. Infundibulum grasped and reflected laterally. Cystic artery and duct dissected free. Critical view obtained. Cystic artery double clipped proximally. Cystic ducts then clipped on the gallbladder side. Opening was made in the cystic duct and cholangiocath inserted and cholangiogram w as obtained using fluoroscopy revealing free flow of contrast into the duodenum without filling defec ts in the common hepatic, common bile duct, right hepatic ducts. Cholangiocath removed. Cystic duct was then doubly clipped. Cystic artery divided. The gallbladder dissected free from liver bed obta ining good hemostasis prior to division of final peritoneal attachments. Gallbladder and multiple st ones removed and submitted to Pathology. Good hemostasis ensured requiring cautery in the liver bed and also firing of a clip for bleeding just lateral to the chet hepatitis. Once good hemostasis had been obtained, irrigant and pneumoperitoneum evacuated after Omar placed around the area of dissec tion and good hemostasis ensured and all stones removed and all incisions closed with continuous sutu re of 4-0 Monocryl and DermaGlue applied.
[2018-01-23] MEDS ORDERED: Ondansetron HCl/PF 4 MG/2 ML Vial ONE ×2 (14:17→15:13)
--- NOTE | 2018-01-23 14:33 | RAD ---
INTRAOPERATIVE CHOLANGIOGRAM: HISTORY: A 67-year-old female with a history of cholelithiasis, status post laparoscopic cholecystectomy. FINDINGS: A single portable fluoroscopic spot image demonstrates emptying into the duodenum. There are multipl e small filling defects within the cystic duct remnant. In addition, there is a potential calculus w ithin the common bile duct, near the cystic duct remnant take-off, which is partially obscured on thi s study. Mild dilatation of the common bile duct, common hepatic duct, and intrahepatic ducts. Multiple small filling defects within the cystic duct remnant, evidence for small stones. Possible l arger filling defect in the common bile duct, near the cystic duct take-off. If that is a clinical c oncern, follow-up nonemergent ERCP might be of benefit. CODE T
[2018-01-23] MEDS ORDERED: ePHEDrine/0.9% NaCl/PF SYRINGE 50 mg/10 ml ONE (15:13)
[2018-01-23] MEDS ORDERED: PHENYLEPHRINE-NS 100 MCG/ML 10 ML SYRINGE ONE (15:13)
[2018-01-23] MEDS ORDERED: PROPOFOL 200 MG/20 ML VIAL ONE (15:13)
[2018-01-23] MEDS ORDERED: Dexamethasone 20 MG/5 ML VIAL ONE (15:13)
[2018-01-23] MEDS ORDERED: Lidocaine 1% PF 5 ML VIAL ONE (15:13)
[2018-01-23] MEDS ORDERED: Promethazine HCl 25 MG/ML VIAL ONE (15:40)
== END 2018-01-23 17:20 | disposition home or self-care (01) ==
LOC: ERS 04:34 → SDC/OP 08:25
PROVIDERS: ATTEND Specialist
PROC: 0FT44ZZ Resection of Gallbladder, Percutaneous Endoscopic Approach (ICD-10-PCS; principal; 2018-01-23)
PROC: BF13YZZ Fluoroscopy of Gallbladder and Bile Ducts using Other Contrast (ICD-10-PCS; 2018-01-23)
DX: K80.12 Calculus of gallbladder with acute and chronic cholecystitis without obstruction (principal); Z88.0 Allergy status to penicillin; Z88.8 Allergy status to other drugs, medicaments and biological substances; Z79.899 Other long term (current) drug therapy; Z79.82 Long term (current) use of aspirin; Z79.52 Long term (current) use of systemic steroids
CPT/HCPCS: 47532; 47563; 76705; 85610; 85730; 88304; 93005; 96361; 96374 ×3; 96375 ×2; 96376; 99285; J1610; 36415; J0131; J0670; J1100; J1885; J1956; J2001; J2185; J2270; J2405; J2550; J2704; J3010; Q0162; Q9961

== ENCOUNTER 2018-01-26 08:41 | Emergency (ER) | payer MEDICARE ==
[2018-01-26 09:21] LABS: #Basophils 0.1 thou/uL (0.0-0.2); #Eosinphils 0.1 thou/uL (0.0-0.7); #Lymphocytes 1.7 thou/uL (1.20-3.40); #Monocytes 0.8 thou/uL (0.11-0.59); #Neutrophils 8.3 thou/uL (1.40-6.50); %Basophils 0.7 % (0.0-1.0); %Eosinophils 0.9 % (0.0-10.0); %Lymphocytes 15.7 % (21.0-51.0); %Monocytes 7.1 % (0.0-10.0); %Neutrophils 75.6 % (42.0-75.0); Hemoglobin 11.5 g/dL (12.0-16.0); Mean Corpuscular HGB CONC 34.1 g/dL (32.0-36.0); Mean Corpuscular Hemoglobin 30.3 pg (27.0-31.0); Mean Corpuscular Volume 88.8 fl (81.0-99.0); Mean Platelet Volume 7.6 fL (7.4-10.4); Platelet Count 194 thou/uL (130-400); RBC Distribution Width 12.3 % (11.5-14.5); Red Blood Cell (RBC) Count 3.79 mill/uL (4.20-5.40)
[2018-01-26 09:47] LABS: CKMB 0.8 ng/mL (0-6.6); Troponin I Less than 0.010 ng/mL (< 0.028)
[2018-01-26 09:56] LABS: Bilirubin Negative (Negative); Blood, Urine Negative (Negative); Clarity CLEAR (Clear); Glucose, Urine (Dipstick) Negative (Negative); Leukocyte Negative (Negative); Nitrite Negative (Negative); Protein, Urine (Dipstick) Negative (Neg-Trace); Specific Gravity, Urine 1.014 (1.002-1.036); Urobilinogen 0.2 mg/dL (0.2-1.0); pH, Urine 7.5 (5.0-9.0)
--- NOTE | 2018-01-26 10:13 | RAD ---
CHEST 1 VIEW: HISTORY: Chest pain. Fever. Recent abdominal surgery. COMPARISON: 01/23/18. FINDINGS: Cardiac silhouette magnified by projection. Pulmonary vasculature upper limits of normal and accentu ated by shallow inspiration. Mediastinum midline. No lobar consolidation or evidence of pneumothora x. cafeteria monitor leads overlie the chest. IMPRESSION: No active cardiopulmonary abnormalities are demonstrated. POS: [facility]
[2018-01-26] MEDS ORDERED: Ondansetron ODT 8 MG TAB ONE (10:20)
--- NOTE | 2018-01-26 10:32 | CT ---
CT ARTERIOGRAM CHEST WITH IV CONTRAST AND 3D MIP IMAGING: HISTORY: Chest pain. Dyspnea. FINDINGS: There is good contrast opacification of the central pulmonary arteries and thoracic aorta with normal branching of the great vessels. A small amount of right pleural fluid with significant atelectasis at each lung base. No pneumothorax or mediastinal adenopathy. Within the partially visualized upper abdomen, gallbladder is surgically absent. A small amount of gas at the partially visualized margin of the gallbladder may represent postoperative gas from recent cholecystectomy. Fluid and contrast material are apparent posterior to the gastric fundus, favored to represent a portion of the stomach. IMPRESSION: 1. No CT evidence of pulmonary embolus. 2. Small right pleural effusion. Mild bibasilar lung atelectasis. 3. Postoperative changes of the gallbladder fossa. POS: [facility]
[2018-01-26 10:44] LABS: ALT (SGPT) 137 U/L (8-55); AST (SGOT) 66 U/L (5-34); Albumin 3.7 g/dL (3.4-4.8); Alkaline Phosphatase 102 U/L (40-150); Anion Gap 13 mmol/L (10-20); BUN (Urea Nitrogen) 7 mg/dL (9.8-20.1); Bilirubin, Total 1.4 mg/dL (0.2-1.2); CK (CPK) 51 U/L (29-168); Calc. Creatinine Clearance 0 mL/min (70-130); Calcium 8.9 mg/dL (7.8-10.44); Carbon Dioxide 28 mmol/L (23-31); Chloride 96 mmol/L (98-107); Estimated GFR-MDRD 88; Globulin 2.6 g/dL (2.4-3.5); Glucose 98 mg/dL (80-115); Potassium 3.6 mmol/L (3.5-5.1); Protein, Total 6.3 g/dL (6.0-8.3); Sodium 133 mmol/L (136-145)
[2018-01-26] MEDS ORDERED: ISOVUE-370 76%-LOCM 1 ML ONE (16:38)
== END 2018-01-26 11:28 | disposition home or self-care (01) ==
LOC: ERS 08:41
DX: G89.18 Other acute postprocedural pain (principal); R10.11 Right upper quadrant pain; K21.9 Gastro-esophageal reflux disease without esophagitis; I10 Essential (primary) hypertension
CPT/HCPCS: 71045; 71275; 80053; 81003; 82553; 83605; 83880; 84484; 85025; 87040; 93005; 94640; 94799; 96361; 96374; J2270; J7620

== ENCOUNTER 2019-09-08 15:30 | Outpatient (CLI) | payer MEDICARE ==
--- NOTE | 2019-09-08 15:56 | ULT ---
RIGHT LOWER EXTREMITY DOPPLER VENOUS ULTRASOUND PROVIDED CLINICAL HISTORY: Right calf edema and swelling TECHNIQUE: Grayscale and color Doppler sonography with spectral analysis was performed of the right common femor al, femoral, popliteal, posterior tibial, greater saphenous and profunda femoral veins. FINDINGS: There is normal compression, flow and augmentation seen within the deep venous structures o f the right lower extremity. IMPRESSION: No sonographic evidence for right lower extremity deep venous thrombosis.
== END 2019-09-08 15:31 | disposition home or self-care (01) ==
LOC: ULT 15:30
PROVIDERS: ATTEND Physician Assistant
DX: M79.89 Other specified soft tissue disorders (principal)

== ENCOUNTER 2021-05-02 15:54 | Observation (INO) | payer MEDICARE ==
[2021-05-02 18:35] VITALS: BMI 32.8
[2021-05-02] MEDS ORDERED: Acetaminophen 325 MG TAB PO PRN (18:56)
[2021-05-02] MEDS ORDERED: Calcium Carbonate 500 MG ChewTAB PO PRN (18:56)
[2021-05-02] MEDS ORDERED: Nitroglycerin 0.4 MG TAB (25 Tab Bottle) SL PRN (18:58)
[2021-05-02 19:20] LABS: Troponin I Less than 0.010 ng/mL (< 0.028)
[2021-05-02] MEDS ORDERED: Magnesium 2 GM/50 ML 2 GM in Premix Bag 1 BAG IVPB SCH (20:00)
[2021-05-02] MEDS ORDERED: Acetaminophen/Codeine 30-300mg Tablet PO PRN (20:01)
[2021-05-02] MEDS ORDERED: Cyclobenzaprine 10 MG TAB PO PRN (20:01)
[2021-05-03 03:53] VITALS: TEMP 98.2
[2021-05-03 08:00] LABS: SARS-CoV-2 PCR by NAA Not Detected (NotDetected)
[2021-05-03] MEDS ORDERED: Spironolactone 25 MG TAB PO SCH (09:00)
[2021-05-03] MEDS ORDERED: Valsartan 80 MG TAB PO SCH ×2 (09:00)
[2021-05-03 10:52] LABS: Mean Corpuscular HGB CONC 33.6 g/dL (32.0-36.0); Mean Corpuscular Hemoglobin 31.1 pg (27.0-31.0); Mean Corpuscular Volume 92.5 fL (78.0-98.0); Mean Platelet Volume 8.4 fL (7.4-10.4); Platelet Count 256 thou/uL (130-400); RBC Distribution Width 12.9 % (11.5-14.5); Red Blood Cell (RBC) Count 4.82 mill/uL (4.20-5.40); White Blood Cell (WBC) Count 8.2 thou/uL (4.8-10.8)
[2021-05-03 11:12] VITALS: BP 144/70
[2021-05-03 12:39] LABS: ALT (SGPT) 19 U/L (8-55); AST (SGOT) 25 U/L (5-34); Albumin 4.7 g/dL (3.4-4.8); Alkaline Phosphatase 82 U/L (40-110); Anion Gap 14 mmol/L (10-20); BUN (Urea Nitrogen) 8 mg/dL (9.8-20.1); Bilirubin, Total 0.9 mg/dL (0.2-1.2); Calc. Creatinine Clearance 95 mL/min (70-130); Calcium 10.1 mg/dL (7.8-10.44); Carbon Dioxide 29 mmol/L (23-31); Chloride 100 mmol/L (98-107); Glucose 143 mg/dL (80-115); Magnesium 2.1 mg/dL (1.6-2.6); Potassium 4.7 mmol/L (3.5-5.1); Protein, Total 7.7 g/dL (5.8-8.1); Sodium 138 mmol/L (136-145)
[2021-05-03] MEDS ORDERED: Rivaroxaban 10 MG TAB PO SCH (18:00)
[2021-05-04] MEDS ORDERED: Valsartan 80 MG TAB PO SCH (09:00)
== END 2021-05-03 13:07 | disposition home or self-care (01) ==
LOC: 2NO 17:54
PROVIDERS: ADMIT Internal Medicine; ATTEND Family Medicine
DX: I49.3 Ventricular premature depolarization (principal); I07.1 Rheumatic tricuspid insufficiency; E83.42 Hypomagnesemia; I12.9 Hypertensive chronic kidney disease with stage 1 through stage 4 chronic kidney disease, or unspecified chronic kidney disease; N18.2 Chronic kidney disease, stage 2 (mild); K21.9 Gastro-esophageal reflux disease without esophagitis; G89.4 Chronic pain syndrome; M54.5 Low back pain; E66.9 Obesity, unspecified; Z68.32 Body mass index [BMI] 32.0-32.9, adult; Z20.822 Contact with and (suspected) exposure to COVID-19; Z86.73 Personal history of transient ischemic attack (TIA), and cerebral infarction without residual deficits; Z79.01 Long term (current) use of anticoagulants; Z79.899 Other long term (current) drug therapy; Z88.5 Allergy status to narcotic agent; Z88.6 Allergy status to analgesic agent; Z88.8 Allergy status to other drugs, medicaments and biological substances
CPT/HCPCS: 80053; 83735; 84484; 85027; 94760; 97139; U0003; U0005; 36415; 96374; G0378; J3475

== ENCOUNTER 2021-09-21 12:25 | Outpatient (CLI) | payer MEDICARE | END 2021-09-21 12:26 | disposition home or self-care (01) | LOC: BICMAMMO 12:25 | PROVIDERS: ATTEND Student in an Organized Health Care Education/Training Program | DX: Z12.31 Encounter for screening mammogram for malignant neoplasm of breast (principal); Z85.828 Personal history of other malignant neoplasm of skin | CPT/HCPCS: 77063; 77067 ==

== ENCOUNTER 2022-02-13 13:11 | Outpatient (CLI) | payer MEDICARE | END 2022-02-13 13:12 | disposition home or self-care (01) | LOC: BICMAMMO 13:11 | PROVIDERS: ATTEND Student in an Organized Health Care Education/Training Program | DX: Z13.820 Encounter for screening for osteoporosis (principal); Z78.0 Asymptomatic menopausal state; M85.88 Other specified disorders of bone density and structure, other site | CPT/HCPCS: 77080 ==

== ENCOUNTER 2023-03-27 10:14 | Outpatient (CLI) | payer MEDICARE | END 2023-03-27 10:15 | disposition home or self-care (01) | LOC: BICMRI 10:14 | PROVIDERS: ATTEND Family Medicine | DX: M17.12 Unilateral primary osteoarthritis, left knee (principal); S83.282A Other tear of lateral meniscus, current injury, left knee, initial encounter; M25.462 Effusion, left knee; M23.92 Unspecified internal derangement of left knee; M71.22 Synovial cyst of popliteal space [Baker], left knee ==